=== PATIENT | female | born 1935 | race Caucasian/White ===

== ENCOUNTER 2023-09-19 11:11 | Emergency (ER) | payer OTHER, SELFPAY ==
--- NOTE | ~2023-09-19 | XR_ITS ---
EXAMINATION: XR TIBIA AND FIBULA, RIGHT CLINICAL INFORMATION: wound,cat bite COMPARISON: None available. TECHNIQUE: AP and lateral views of the right tibia and fibula were obtained. FINDINGS: Medial skin marker positioned at level of the distal tibial diaphysis. Subtle skin irregularity in this region. No radiopaque foreign body or significant air in the soft tissues is identified. No acute fracture or malalignment. Articulation at the knee and ankle joint is maintained.. XR/XR tibia fibula RT 2V IMPRESSION: Soft tissue irregularity/wound medial to the distal tibial diaphysis in the clinical concern. No radiographic evidence of radiodense foreign body or significant air in the soft tissues is seen.
--- NOTE | 2023-09-19 11:51 | ED.ANIMALBIT ---
HPI - Animal Bite General Chief Complaint: Wound/Laceration Stated Complaint: Needs Iv antibiotic/wound care Time Seen by Provider: 09/19/23 13:45 Source: patient and family Mode of arrival: ambulatory Limitations: no limitations History of Present Illness HPI narrative: 16 days of a wound that is secondary to a cat bite on the medial aspect of her lower right tibia. No erythema, no pus, no drainage there is a black escar. complaint: animal bite Onset (ago): week(s) Animal: cat Description of animal: household pet and immunizations UTD Mechanism: bite Related Data Home Medications ?Medication ?Instructions ?Recorded ?Confirmed sertraline 50 mg tablet 50 mg PO DAILY 05/26/22 verapamil 180 mg tablet,extended 0 mg PO 05/26/22 release Previous Rx's ?Medication ?Instructions ?Recorded phenazopyridine 200 mg tablet 200 mg PO TID 3 days #9 tabs 05/26/22 (Pyridium) sulfamethoxazole 800 1 tab PO BID 5 days #10 tabs 05/26/22 mg-trimethoprim 160 mg tablet (Bactrim DS) ciprofloxacin HCl 250 mg tablet 250 mg PO BID #14 tabs 05/28/22 (Cipro) Allergies Allergy/AdvReac Type Severity Reaction Status Date / Time Penicillins AdvReac Intermediate Nausea and Verified 09/19/23 11:51 Vomiting Review of Systems Review of Systems: Yes all other systems are reviewed and are negative Neurologic: Denies Sensory deficit (Neuro) [facility] Social History Social History Patient Tobacco Use Status: Never used Tobacco Physical Exam ED Vital Signs: Vital Signs - 24 hr 09/19/23 11:52 Temperature 98 F Pulse Rate 78 Respiratory Rate 19 Blood Pressure 145/56 H Pulse Oximetry 98 Oxygen Delivery Method Room Air BMI result Body Mass Index 18.3 Const General: healthy appearing Nutritional Appearance: average body habitus Orientation/consciousness: oriented to person and patient oriented x3 Limitations: no limitations HENMT Head: Yes normal to inspection Ears: external ears normal General nose exam: Normal external nose present Mouth: Normal oral and palatal mucosa present and oropharynx normal Throat: Yes posterior oropharynx normal Eyes General: appearance normal, both eyes and all related structures Neck Neck: Yes normal visual inspection Chest Chest palpation & inspection: normal inspection of the chest Resp Auscultation: clear to auscultation bilaterally Cardio Jugular venous distension: no JVD Rate: regular rate Rhythm: regular rhythm Heart sounds: S1 normal heart sound present and S2 normal heart sound present GI Inspection: Yes normal to inspection Palpation (GI): Soft to palpation, nontender and No hepatosplenomegaly present Auscultation: normal bowel sounds General: Yes no CVA tenderness Back/Spine/Pelvis Back: no CVA tenderness Skin Other: black escar to medial aspect of medial lower right tibia, no erythema, no drainage Neuro General: oriented to person and patient oriented x3 Cranial nerves: Yes CN's II-XII intact bilaterally Motor exam (neuro): 5/5 motor strength present throughout Sensory Exam: No Sensory deficit (Neuro) Extrem General: Yes normal to inspection Psych Appearance: grossly normal Course Course Course Narrative: RME- 12 noon - 88-year-old female presenting to the ER with complaints of a persistent cat bite to her right calf area that has been present for approximately 1 month apparently she was seen by her PCP and could not take the penicillin therefore they gave her clindamycin another antibiotic for her daughter. They gave her 10 day course although no improvement. She went back to her PCP approximately 2 weeks ago and they trace the line and it appears that patient went back on Tuesday and then again today and they were concerned that the erythema spreading therefore they sent her here for ?a shot of antibiotics?. Daughter was requesting the Walter to be sent home although I explained to her that this is not how it works. Otherwise she reports she is up-to-date on tetanus. The Cat was up-to-date on rabies. She denies any other symptoms complaints or concerns at this time. Plan: Basic labs and x-ray of right lower extremity patient will be sent back to the waiting room to be evaluated ED. Reevaluation(s) Reevaluation #1: No evidence of active infection or cellulitis, or osteomyelitis will refer to the wound clinic Time: 14:09 Medical Decision Making Differential Diagnosis Differential Diagnoses: The differential diagnosis associated with the presentation includes (osteomyelitis, cellulitis, chronic wound) Admission/Observation Consideration of admission/observation: Escalation of care including admission/observation considered (upon arrival patient was considered for admission) Lab Data 09/19/23 13:02 09/19/23 13:02 Labs: Lab Results 09/19/23 Range/Units 13:02 WBC 9.3 (4.8-10.8) X10*3/uL RBC 5.34 (4.20-5.50) X10*6/uL Hgb 16.6 H (12.0-16.0) g/dl Hct 49.8 H (37.0-47.0) % MCV 93.3 (80.0-98.0) fL MCH 31.1 (27.0-33.0) pg MCHC 33.3 (31.0-35.0) g/dl RDW 15.5 (11.0-16.0) % Plt Count 222 (160-400) X10*3/uL MPV 9.8 (9.4-12.3) fL Immature Gran % (Auto) 0.3 (0.0-0.4) % Neut % (Auto) 69.6 (45-73) % Lymph % (Auto) 19.8 L (20-40) % [place] % (Auto) 8.7 (2-11) % Eos % (Auto) 1.1 (0-4) % Baso % (Auto) 0.5 (0-2) % Lymph # (Auto) 1.8 (1.2-4.9) X10*3/uL [place] # (Auto) 0.8 (0.1-1.2) X10*3/uL Eos # (Auto) 0.1 (0.0-0.4) X10*3/uL Baso # (Auto) 0.1 (0.0-0.2) X10*3/uL Abs Immat Gran (auto) 0.03 (0.00-0.03) X10*3/uL Absolute Neuts (auto) 6.5 (2.0-8.3) x10*3/uL Absolute Nucleated RBC 0.000 (0.0-0.012) X10*3/uL Nucleated RBC % (auto) 0.0 (0.0-0.2) /100WBC ESR 4 (0-20) MM/HR Sodium 139 (135-145) mmol/L Potassium 4.8 (3.3-5.1) mmol/L Chloride 105 (96-108) mmol/L Carbon Dioxide 27 (22-29) mmol/L Anion Gap 12 (12-20) BUN 16 (9-16) mg/dL Creatinine 0.74 (0.5-1.4) mg/dL Estim Creat Clear Calc 38.3 Estimated GFR > 60 Random Glucose 112 (60-115) mg/dL Calcium 10.0 (8.4-10.2) mg/dL Magnesium 2.0 (1.6-2.6) mg/dL Total Bilirubin 0.8 (0.0-1.0) mg/dL AST 26 (5-31) U/L ALT 14 (0-31) U/L Alkaline Phosphatase 96 (39-117) U/L C-Reactive Protein 0.25 (< or = 0.50) mg/dL Total Protein 7.1 (6.5-8.0) g/dL Albumin 4.2 (3.5-5.0) g/dL Independent Interpretation I performed an independent interpretation of an: Plain X-Ray (tib/fib: no evidence of rafael destruction) Independent Historian Clinical information obtained from an independent historian. History obtained from or confirmed by: Other (daughter) Prescription Management I considered prescription management with: Antibiotic (antibiotics not given as there is no evidence of infection) Discharge Plan Discharge Clinical Impression: Chronic wound Patient Disposition: Home, Self-Care Prescriptions: No Action ciprofloxacin HCl [Cipro] 250 mg tablet 250 mg PO BID Qty: 14 0RF verapamil 180 mg tablet extended release 0 mg PO sertraline 50 mg tablet 50 mg PO DAILY sulfamethoxazole-trimethoprim [Bactrim DS] 800-160 mg tablet 1 tab PO BID 5 Days Qty: 10 0RF phenazopyridine [Pyridium] 200 mg tablet 200 mg PO TID 3 Days Qty: 9 0RF Referrals: [facility] [Provider Group] - 09/21/23 12:45 pm (Tuesday at 12:45) Interventions: ED Discharge Assessment Last Done: 09/19/23 14:34 Discharge Date/Time: 09/19/23 14:34 Print Language: Kyr[place]z
[2023-09-19 11:52] VITALS: BP 145/56; PULSE 78; RESP 19; TEMP 36.6; O2SAT 98; BMI 18.3
[2023-09-19 13:06] LABS: MANUAL DIFF FLAG NO
[2023-09-19 13:07] LABS: Basophils Absolute Auto 0.1 X10*3/uL (0.0-0.2); Basophils Percent Auto 0.5 % (0-2); Eosinophils Absolute Auto 0.1 X10*3/uL (0.0-0.4); Eosinophils Percent Auto 1.1 % (0-4); Hematocrit 49.8 % (37.0-47.0); Hemoglobin 16.6 g/dl (12.0-16.0); Imm Gran Abs Auto 0.03 X10*3/uL (0.00-0.03); Imm Gran Pct Auto 0.3 % (0.0-0.4); Lymphocytes Absolute Auto 1.8 X10*3/uL (1.2-4.9); Lymphocytes Percent Auto 19.8 % (20-40); Mean Corpuscular HGB Conc 33.3 g/dl (31.0-35.0); Mean Corpuscular Hemoglobin 31.1 pg (27.0-33.0); Mean Corpuscular Volume 93.3 fL (80.0-98.0); Mean Platelet Volume 9.8 fL (9.4-12.3); Monocytes Absolute Auto 0.8 X10*3/uL (0.1-1.2); Monocytes Percent Auto 8.7 % (2-11); Neutrophils Absolute Auto 6.5 x10*3/uL (2.0-8.3); Neutrophils Percent Auto 69.6 % (45-73); Platelet Count 222 X10*3/uL (160-400); Red Blood Count 5.34 X10*6/uL (4.20-5.50); Red Cell Distribution Width 15.5 % (11.0-16.0); White Blood Count 9.3 X10*3/uL (4.8-10.8)
[2023-09-19 13:20] LABS: Alanine Aminotransferase 14 U/L (0-31); Albumin Level 4.2 g/dL (3.5-5.0); Alkaline Phosphatase 96 U/L (39-117); Anion Gap 12 (12-20); Aspartate Amino Transferase 26 U/L (5-31); Bilirubin Total 0.8 mg/dL (0.0-1.0); Blood Urea Nitrogen 16 mg/dL (9-16); C Reactive Protein 0.25 mg/dL (< or = 0.50); Carbon Dioxide 27 mmol/L (22-29); Chloride 105 mmol/L (96-108); Creatinine Clr Calc Pharmacy 38.3; Estimated Glomerular Filt Rate > 60; Glucose Random 112 mg/dL (60-115); Potassium 4.8 mmol/L (3.3-5.1); Sodium 139 mmol/L (135-145); Total Protein 7.1 g/dL (6.5-8.0)
[2023-09-19 13:59] LABS: Erythrocyte Sedimentation Rate 4 MM/HR (0-20)
== END 2023-09-19 14:34 | disposition home or self-care (01) ==
PROVIDERS: Physician Assistant Medical; Emergency Provider Emergency Medicine; PCP Internal Medicine
DX: S81.851D Open bite, right lower leg, subsequent encounter (principal); W55.01XD Bitten by cat, subsequent encounter; Z88.0 Allergy status to penicillin
CPT/HCPCS: 36415; 73590; 80053; 83735; 85025; 85652; 86140; 99282; 99283

== ENCOUNTER 2023-09-21 12:50 | Outpatient (RCR) | payer OTHER, SELFPAY | END 2023-10-24 12:02 | disposition home or self-care (01) | LOC: HO.WCC 12:50 | PROVIDERS: PCP Internal Medicine; Visit Provider Surgery | DX: L97.812 Non-pressure chronic ulcer of other part of right lower leg with fat layer exposed (principal); W55.01XA Bitten by cat, initial encounter; Y93.9 Activity, unspecified; Y92.9 Unspecified place or not applicable; Y99.9 Unspecified external cause status; Z87.891 Personal history of nicotine dependence; Z79.899 Other long term (current) drug therapy | CPT/HCPCS: 11042; 99212 ==